=== PATIENT | female | born 1975 | race Caucasian/White ===

== ENCOUNTER 2024-08-07 11:59 | Emergency (ER) | payer MEDICAID, SELFPAY ==
[2024-08-07 12:15] VITALS: BP 149/87; PULSE 64; RESP 16; TEMP 36.4; O2SAT 98
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
--- NOTE | 2024-08-07 13:24 | PC.NURSE ---
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 Patient using her walker to leave ED
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
--- OUTSIDE RECORDS SUMMARY | 2024-08-07 13:40 | XMS_ITS | Clinical Summary ---
Author Organization [facility] Address [address] [place] [address] Phone Care Team Providers Care Bulbs Farmworker Name Role Phone Yifan Zamora MD Unavailable [phone] Jean Grewal MD Unavailable [phone] Jena Grewal MD Primary Care Provider Allergies Active Allergy Reactions Criticality Noted Date Comments Gabapentin Vomiting 08/27/2022 Gabapentin Other (see Comments) Medium 11/02/2023 Medications naproxen (NAPROSYN) 500 MG Tablet Take 1 Tablet by mouth 2 times daily (with meals). 60 Tablet 02/16/20 22 Active hydroCHLOROthiazid e 12.5 MG TabletIndications: Hypertension Take 12.5 mg by mouth daily. Indications: High Blood Pressure Disorder Active aspirin 81 MG Chewable Tablet Take 1 Tablet by mouth daily. 11/04/19 24 Active atorvastatin (LIPITOR) 40 MG Tablet Take 1 Tablet by mouth nightly. 90 Tablet 1 11/03/19 24 Active Additional Information Patient not taking.Reported on 11/14/2023 nicotine (NICODERM CQ) 21 MG/24HR PATCH 24 HR 1 Patch by Transdermal route daily as needed for Other (Nicotine dependency). 30 Patch 11/03/19 24 Active polyethylene glycol (GLYCOLAX, MIRALAX) 17 g PackIndications:Co nstipation Take 1 Packet by mouth 2 times daily as needed for Constipation - 1st line. Dissolve in 4-8 oz of liquid. Indications: Constipation 90 Packet 11/03/19 Active senna (SENOKOT) 8.6 MG Tablet Take 1 Tablet by mouth 2 times daily as needed for Constipation - 2nd line. 30 Tablet 11/03/19 24 Active Additional Information Patient not taking.Reported on 11/14/2023 methylPREDNISolone (MEDROL DOSPACK) 4 MG Tablet Therapy PackIndications:Ac wales nonintractable headache, unspecified headache type Use as per instructions on package. 1 Tablet 11/05/19 Active Additional Information Patient not taking.Reported on 11/14/2023 meclizine (ANTIVERT) 25 MG Tablet Take 1 Tablet by mouth 3 times daily as needed for Dizziness. 30 Tablet 11/09/19 24 Active esomeprazole (NexIUM) 20 MG CAPSULE DELAYED RELEASE Take 20 mg by mouth daily. Active amitriptyline (ELAVIL) 25 MG Tablet Take 1 Tablet by mouth nightly. 90 Tablet 11/14/19 24 Active ondansetron (ZOFRAN-ODT) 4 MG TABLET DISPERSIBLE Take 1 Tablet by mouth every 6 hours as needed for Nausea - 1st line. 10 Tablet 11/26/19 24 Active ALPRAZolam (XANAX) 0.5 MG TabletIndications: Anxiety Take 1 tablet an hour before MRI. May repeat 2 times if needed 3 Tablet 12/12/19 24 Active Active Problems Problem Noted Date Diagnosed Date Meningioma 11/03/2023 Nicotine use disorder 11/03/2023 Numbness and tingling in right hand 11/02/2023 PTSD (post-traumatic stress disorder) 04/06/2023 Depression PTSD (post-traumatic stress disorder) Tobacco abuse Overview (11/02/2023): vapes Encounters Date Type Department Care Team Description 08/06/2024 Telephone [facility] [address] [place] [address] Leann Rhodes LCSW 07/29/2024 Telephone [facility] [address] [place] [address] Sparkle Helton LCSW 07/15/2024 8:40 PM CDT - 07/16/2024 12:19 AM CDT Emergency [facility] [address] [place] [address] Walter Cazares MD Left lower quadrant abdominal pain Discharge Disposition: Discharged to home or Selfcare 07/15/2024 Travel 05/14/2024 10:45 AM EXPERT MEDICAL WRITER Outpatient Clinic Visit [facility] [address] [place] [address] Leann Rhodes LCSW PTSD (post-traumatic stress disorder) (Primary Dx) Discharge Disposition: Discharged to home or Selfcare 05/14/2024 Travel from Last 3 Months Family History Medical History Relation Name Comments Chronic Obstructive Pulmonary Disease Father Diabetes Mother Relation Name Status Comments Father Mother Social History Tobacco Use Types Packs/Day Years Used Date Smoking Tobacco: Former Cigarettes Smokeless Tobacco: Never Tobacco Cessation:Counseling Given: No Alcohol Use Standard Drinks/Week Comments Yes 0 (1 standard drink = 0.6 oz pure alcohol) Occasional drink, maybe 2x/month [employer] Answer Date Recorded In the past 12 months has th [employer] gas, oil, or water [employer] threatened to shut off services in your [...] often do you attend chur ch or spiritism services? Never 11/02/2023 Do you belong to any clubs o r organizations such as jain groups, unions, fraternal or athletic groups, or [...] Total Score - Questions 1-9 2 04/20 [facility] - Occupational [...] any time in the past 12 m [facility], were you homeless or living in a [place] health care facility (including now)? No 11/02/2023 Sexually Active Control Partners Comments Yes Male Comments No Sex and Gender Information Value Date Recorded Sex Assigned at Not on file Legal Sex Female 8:11 PM CDT Gender Identity Not on file Sexual Orientation Not on file Last Filed Vital Signs Vital Sign Reading Time Taken Comments Blood Pressure 112/89 07/16/2024 12:00 AM CDT Pulse 83 07/16/2024 12:00 AM CDT Temperature 36.1 C (97 F) 07/15/2024 8:47 PM CDT Respiratory Rate 16 07/15/2024 8:47 PM CDT Oxygen Saturation 100% 07/16/2024 12:00 AM CDT Inhaled Oxygen Concentration - - Weight 68 kg (150 lb) 07/15/2024 8:47 PM CDT Height 160 cm (5' 3 ) 07/15/2024 8:47 PM CDT Body Mass Index 26.57 07/15/2024 8:47 PM CDT Plan of Treatment Upcoming Encounters Date Type Department Care Team (Late st Contact Info) Description 09/12/2024 10:45 AM CDT Office Visit [facility] - Internal Medicine - [place] [address] [place] [address] Sandee Petersen, [facility] [address] [place] [address] Health Maintenance Due Date Last Done Comments Hepatitis C Virus (HCV) Screening 1973 Mammogram 1973 Hepatitis B Immunization (1 of 3 - 19+ 3-dose series) 1992 Pap Smear 1994 Cervical Cancer Screening (CCS) 10/12/2003 HPV/Cotest 10/12/2003 Colonoscopy 2018 Colorectal Cancer Screening 2018 Cologuard 10/12/2023 Immunochemical Fecal Occult Blood 10/12/2023 Pneumococcal Immunization (5 0+ years) (1 of 1 - PCV) 10/12/2023 Zoster Immunization (1 of 2) 10/12/2023 SARS-COV-2 Immunization (1 - season) 2023 Influenza Immunization (Seas on Ended) 2024 Respiratory Syncytial Virus (RSV) Immunization (Adult) (1 - 1-dose 75+ series) 2048 DTaP/Tdap/Td Immunization Discontinued 12/05/2017 TdaP Immunization Completed 12/05/2017 Human Papillomavirus (HPV) Immunization Aged Out No longer eligible b ased on patient's age to complete this topic Meningococcal Immunization (ACWY) Aged Out No longer eligible based on patient's age to complete this topic Rotavirus Immunization Aged Out No lo nger eligible based on patient's age to complete this topic Goals Goal Patient Goal Type Associated Problems Recent Progress Patient-Stated? Author I don't know what I need to be able to handle all of this. Behavioral Health No change(2024 11:56 AM EXPERT MEDICAL WRITER) Yes Leann Rhodes LCSW Note: Goal/Objective: Improve coping with trauma responses and triggers. Anticipated Time Frame for Goal Completion: 6 months Goal Reviewed with: patient Readiness to change: Ready to change Department associated with goal: [facility] Steps to achieve goal: [...] respinses. Behavioral Health No change(2024 12:02 PM EXPERT MEDICAL WRITER) Yes Leann Rhodes LCSW Note: Goal/Objective: Decrease trauma responses and learn how to manage them.. Anticipated Time Frame for Goal Completion: 6 months Goal Reviewed with: patient Readiness to change: Ready to change Department associated with goal: [facility] Steps to achieve goal: will share personal trauma story in counseling/psychotherapy sessions. will learn/identify how trauma has impacted personal life, physical health and behavioral health. will identify and practice, at least two, skills/activities/routines, to gain relief from the impact of trauma. Will attend individual and/or group therapy at least 1x/month at least 6 sessions Procedures Procedure Name Priority Date/Time Associated Diagnosis Comments CT ABDOMEN PELVIS W/O CONTRAST Stat with Interpretation 07/15/2024 10:30 PM CDT GOLD TOP TUBE STAT 07/15/2024 10:05 PM CDT BLUE TOP TUBE STAT 07/15/2024 10:05 PM CDT CBC WITH AUTO DIFFERENTIAL STAT 07/15/2024 10:05 PM CDT EXTRA TUBES STAT 07/15/2024 10:05 PM CDT CMP (COMPREHENSIVE METABOLIC PANEL) STAT 07/15/2024 10:05 PM CDT COMPLETE BLOOD COUNT (CBC) WITH DIFF STAT 07/15/2024 10:05 PM CDT URINALYSIS REFLEX IF INDICATED BY ABNORMAL RESULTS STAT 07/15/2024 10:00 PM CDT POCT URINE HCG () STAT 07/15/2024 8:49 PM CDT from Last 3 Months Results * CT ABDOMEN PELVIS W/O CONTRAST (07/15/2024 10:30 PM CDT) Anatomical Region Laterality Modality Abdomen N/A Computed Tomogra phy 07/15/2024 11:0 9 PM CDT Impressions 07/15/2024 11:11 PM CDT IMPRESSION: No acute intra-abdominal or pelvic abnormality seen. Mildly enlarged uterus with a slightly lobulated margin, suggestive of fibroids. Consider nonemergent follow-up pelvic ultrasound for further evaluation. Multilevel degenerative changes in the spine. Narrative 07/15/2024 11:11 PM CDT EXAM DESCRIPTION: CT ABDOMEN PELVIS W/O CONTRAST REASON FOR STUDY: c/p LLQ abdominal pain today. States it has been about 2 months since she had a menstrual period but did have bleeding 7 days ago that she did not think was a cycle. HX: Ectopic preganancy, Right tubal ligation TECHNIQUE: CT scan of the abdomen and pelvis performed without intravenous and without oral contrast using helical scanning technique. Reconstructed coronal and sagittal MPR images reviewed. All images stored on PACS. Automated exposure control was used as a dose optimization technique for this examination. COMPARISON: None. FINDINGS: The sensitivity for detection of visceral lesions is diminished without the use of intravenous contrast. LOWER CHEST: The lung bases are clear. LIVER: The liver is normal in attenuation without focal lesion. GALLBLADDER: No stones identified. Normal wall. No evidence of pericholecystic fluid. BILE DUCTS: No intrahepatic or extrahepatic ductal dilatation. PANCREAS: Normal. SPLEEN: Normal size. No focal lesions. ADRENALS: Normal. KIDNEYS/URINARY TRACT: No identified significant cystic or solid masses. No visualized stones. No hydronephrosis or hydroureter. Urinary bladder is unremarkable. VASCULATURE: No acute abnormality seen. No abdominal aortic aneurysm. GI: The stomach appears normal. There is no significant small bowel dilation or visible thickening. No gross colonic abnormalities identified. The appendix is normal. PERITONEUM/MESENTERY: No ascites or free air. LYMPH NODES: There are no enlarged lymph nodes seen by CT size criteria. REPRODUCTIVE: The uterus is mildly enlarged with a slightly lobulated margin, suggestive of fibroids. No adnexal pathology is seen. MUSCULOSKELETAL: Multilevel degenerative changes are present in the spine. No acute abnormality is seen. OTHER: No other abnormality. THIS IS AN ELECTRONICALLY VERIFIED FINAL REPORT 07/15/2024 11:09 PM - Electronically signed by Silva Barone M.D. SN: Report ID: [id number] Reading Location: [id number] Procedure Note Silva Barone MD - 07/15/2024 EXAM DESCRIPTION: CT ABDOMEN PELVIS W/O CONTRAST REASON FOR STUDY: c/p LLQ abdominal pain today. States it has been about 2 months since she had a menstrual period but did have bleeding 7 days ago that she did not think was a cycle. HX: Ectopic preganancy, Right tubal ligation TECHNIQUE: CT scan of the abdomen and pelvis performed without intravenous and without oral contrast using helical scanning technique. Reconstructed coronal and sagittal MPR images reviewed. All images stored on PACS. Automated exposure control was used as a dose optimization technique for this examination. COMPARISON: None. FINDINGS: The sensitivity for detection of visceral lesions is diminished without the use of intravenous contrast. LOWER CHEST: The lung bases are clear. LIVER: The liver is normal in attenuation without focal lesion. GALLBLADDER: No stones identified. Normal wall. No evidence of pericholecystic fluid. BILE DUCTS: No intrahepatic or extrahepatic ductal dilatation. PANCREAS: Normal. SPLEEN: Normal size. No focal lesions. ADRENALS: Normal. KIDNEYS/URINARY TRACT: No identified significant cystic or solid masses. No visualized stones. No hydronephrosis or hydroureter. Urinary bladder is unremarkable. VASCULATURE: No acute abnormality seen. No abdominal aortic aneurysm. GI: The stomach appears normal. There is no significant small bowel dilation or visible thickening. No gross colonic abnormalities identified. The appendix is normal. PERITONEUM/MESENTERY: No ascites or free air. LYMPH NODES: There are no enlarged lymph nodes seen by CT size criteria. REPRODUCTIVE: The uterus is mildly enlarged with a slightly lobulated margin, suggestive of fibroids. No adnexal pathology is seen. MUSCULOSKELETAL: Multilevel degenerative changes are present in the spine. No acute abnormality is seen. OTHER: No other abnormality. THIS IS AN ELECTRONICALLY VERIFIED FINAL REPORT 07/15/2024 11:09 PM - Electronically signed by Silva Barone M.D. SN: Report ID: [id number] Reading Location: [place] [address] IMPRESSION: No acute intra-abdominal or pelvic abnormality seen. Mildly enlarged uterus with a slightly lobulated margin, suggestive of fibroids. Consider nonemergent follow-up pelvic ultrasound for further evaluation. Multilevel degenerative changes in the spine. Walter Cazares MD IMG CT ORDERABLES Final Re sult * Gold Top Tube (07/15/2024 10:05 PM CDT) Blood No Phlebotomy Charged / Unknown 07/15/2024 10:05 PM CDT 07/15/2024 10:29 PM CDT Walter Cazares MD CHEMISTRY ORDERABLES Final Result [facility] [place] [address] * Blue Top Tube (07/15/2024 10:05 PM CDT) Blood No Phlebotomy Charged / Unknown 07/15/2024 10:05 PM CDT 07/15/2024 10:29 PM CDT us Walter Cazares MD HEMATOLOGY ORDERABLES Krsitie l Result [facility] [place] [address] * (ABNORMAL) CBC with Auto Differential (07/15/2024 10:05 PM CDT) WBC 8.19 4.00 - 12.00 10(3)/mcL 07/15/2024 10:32 PM CDT [facility] RBC 4.00 3.80 - 5.30 10(6)/mcL 07/15/2024 10:32 PM CDT [facility] HEMOGLOBIN (HGB) 12.2 12.0 - 15.8 g/dL 07/15/2024 10:32 PM CDT [facility] HEMATOCRIT (HCT) 35.4(L) 36.0 - 47.0 % 07/15/2024 10:32 PM CDT [facility] MCV 88.5 82.0 - 96.0 fL 07/15/2024 10:32 PM CDT [facility] MCH 30.5 26.0 - 34.0 pg 07/15/2024 10:32 PM CDT [facility] MCHC 34.5 31.0 - 36.0 g/dL 07/15/2024 10:32 PM CDT [facility] PLATELET COUNT 308 140 - 440 10(3)/mcL 07/15/2024 10:32 PM CDT [facility] RDW 12.1 11.8 - 15.5 % 07/15/2024 10:32 PM CDT [facility] MPV 10.4 9.7 - 12.4 fL 07/15/2024 10:32 PM CDT [facility] NEUTROPHILS 58.5 47.0 - 73.0 % 07/15/2024 10:32 PM CDT [facility] LYMPHOCYTES 34.7 18.0 - 42.0 % 07/15/2024 10:32 PM CDT [facility] MONOCYTES 4.9 4.0 - 12.0 % 07/15/2024 10:32 PM CDT [facility] EOSINOPHILS 1.7 0.0 - 5.0 % 07/15/2024 10:32 PM CDT [facility] BASOPHILS 0.2 0.0 - 1.0 % 07/15/2024 10:32 PM CDT [facility] ABSOLUTE NEUTROPHILS 4.79 1.60 - 7.70 10(3)/mcL 07/15/2024 10:32 PM CDT [facility] ABSOLUTE LYMPHOCYTES 2.84 1.30 - 3.20 10(3)/mcL 07/15/2024 10:32 PM CDT [facility] ABSOLUTE MONOCYTES 0.40 0.20 - 1.00 10(3)/mcL 07/15/2024 10:32 PM CDT [facility] ABSOLUTE EOSINOPHIL 0.14 0.00 - 0.40 10(3)/[facility] 07/15/2024 10:32 PM CDT [facility] ABSOLUTE BASOPHILS 0.02 0.00 - 0.10 10(3)/[facility] 07/15/2024 10:32 PM CDT [facility] NRBC PER 100 WBC 0 07/16/19 10:32 PM CDT [facility] Blood Venipuncture / Unknown 07/15/2024 10:05 PM CDT 07/15/2024 10:29 PM CDT us Walter Cazares MD HEMATOLOGY ORDERABLES Kristie gramajo Result [facility] [place] [address] * CMP (07/15/2024 10:05 PM CDT) SODIUM 140 136 - 145 mmol/L 07/15/2024 10:55 PM CDT [facility] POTASSIUM 4.0 3.5 - 5.1 mmol/L 07/15/2024 10:55 PM CDT [facility] CHLORIDE 104 98 - 107 mmol/L 07/15/2024 10:55 PM CDT [facility] CO2, VENOUS 27 22 - 30 mmol/L 07/15/2024 10:55 PM CDT [facility] ANION GAP 13.0 <18.0 mmol/L 07/15/2024 10:55 PM CDT [facility] GLUCOSE 98 70 - 99 mg/dL 07/15/2024 10:55 PM CDT [facility] BUN 11 10 - 20 mg/dL 07/15/2024 10:55 PM CDT [facility] CREATININE, BLOOD 0.73 0.60 - 1.00 mg/dL 07/15/2024 10:55 PM CDT [facility] BUN/CREATININE RATIO 15 12 - 20 ratio 07/15/2024 10:55 PM CDT [facility] TOTAL PROTEIN 7.6 6.0 - 8.0 g/dL 07/15/2024 10:55 PM CDT [facility] ALBUMIN 4.2 3.5 - 5.0 g/dL 07/15/2024 10:55 PM CDT [facility] A/G RATIO 1.2 1.0 - 2.2 07/15/2024 10:55 PM CDT [facility] CALCIUM 9.3 8.7 - 10.5 mg/dL 07/15/2024 10:55 PM CDT [facility] T BILI 0.2 0.2 - 1.2 mg/dL 07/15/2024 10:55 PM CDT [facility] SGOT (AST) 18 <43 U/L 07/15/2024 10:55 PM CDT [facility] SGPT (ALT) 15 <56 U/L 07/15/2024 10:55 PM CDT [facility] ALKALINE PHOSPHATASE 41 40 - 150 U/L 07/15/2024 10:55 PM CDT [facility] GFR, ESTIMATED >60 >=60 07/15/2024 10:55 PM CDT [facility] Comment: Creatinine Clearance is the preferred criteria for selecting drug dose adjustments in renally impaired patients. The GFR is provided as additional pertinent clinical information. GFR is reported in mL/min/1.73 sq m. Calculation based on the Chronic Kidney Disease Epidemiology Collaboration (CKD- EPI) equation refit without adjustment for race. GFR, EST. >60 >=60 025 10:55 PM CDT [facility] GFR, EST. NONAFRICAN >60 >=60 07/15/2024 10:55 PM CDT [facility] Blood Venipuncture / Unknown 07/15/2024 10:05 PM CDT 07/15/2024 10:29 PM CDT us Walter Cazares MD CHEMISTRY ORDERABLES Final Result [facility] [place] [address] * (ABNORMAL) Urinalysis w/ Reflex (07/15/2024 10:00 PM CDT) SPECIFIC GRAVITY 1.010 1.003 - 1.030 07/15/2024 10:34 PM CDT [facility] URINE PH 6.0 5.0 - 9.0 07/15/2024 10:34 PM CDT [facility] WBC ESTERASE Negative Negative 07/15/2024 10:34 PM CDT [facility] NITRITE Negative Negative 07/15/2024 10:34 PM CDT [facility] PROTEIN, RANDOM URINE 15 mg/dL(A) Negative 07/15/2024 10:34 PM CDT [facility] URINE GLUCOSE, QUAL Negative Negative 07/15/2024 10:34 PM CDT [facility] URINE KETONES Negative Negative 07/15/2024 10:34 PM CDT [facility] UROBILINOGEN Normal Normal mg/dL 07/15/2024 10:34 PM CDT [facility] URINE BLOOD Negative Negative cristiane/ul 07/15/2024 10:34 PM CDT [facility] URINALYSIS COLOR Pale yellow 025 10:34 PM CDT [facility] URINALYSIS CLARITY Clear 07/15/2024 10:34 PM CDT [facility] Urine URINE SPECIMEN / Unknown Non-Phlebotomy Collection / Unknown 07/15/2024 10:00 PM CDT 07/15/2024 10:29 PM CDT Walter Cazares MD URINE ORDERABLES Final Res ult [facility] [place] [address] * POCT Urine HCG () (07/15/2024 8:49 PM CDT) POC URINE Negative POC URINE CONTROL [employer] Urine 07/15/2024 8:49 PM CDT Walter Cazares MD POINT OF CARE TESTING (MAN UAL) Final Result from Last 3 Months Insurance MEDICAID [place] Advance Directives * Full Code (Latest Code Status on File) Date Activated Date Inactivated Comments 11/02/2023 3:11 PM 11/09/2023 7:40 AM CPR-Full Duane atment: FULL ARREST: Attempt Resuscitation/CPR wit intubation and mechanical ventilation. PRE-ARREST: Use entire range of life support measures to stabilize the patient. Care Teams Bulbs Farmworker Relationship Specialty Start Date End Date Jean Grewal MD [address] [place] [address] PCP - General Neurology 12/21/23 [place] [address] [place], [place] [id number] Family Medicine 02/07/23 Jean Grewal MD [address] [place] [address] Consulting Physician Neurology 11/14/23
== END 2024-08-07 14:36 | disposition left against medical advice (07) ==
LOC: ANHED 13:38
PROVIDERS: Emergency Provider Physician Assistant
DX: S39.012A Strain of muscle, fascia and tendon of lower back, initial encounter (principal); X58.XXXA Exposure to other specified factors, initial encounter
CPT/HCPCS: 99281

== ENCOUNTER 2024-08-11 12:53 | Emergency (ER) | payer OTHER, MEDICAID, SELFPAY ==
--- NOTE | ~2024-08-11 | XR_ITS ---
HISTORY: GEN PAIN COMPARISON: None TECHNIQUE: 3 views of the cervical spine were performed FINDINGS: Visualization of the cervical spine to the superior endplate of T1. Straightening of the normal curvature of the cervical spine is identified. No prevertebral soft tissue swelling is appreciated. No acute compression fracture is noted. The dens is equidistant between the pillars, without asymmetry. Air column within the trachea is midline. The visualized portions of the bilateral upper lung issa are unremarkable. IMPRESSION: Straightening of the normal curvature of the cervical spine, likely muscular in origin. Reviewed, dictated and finalized at location A.
--- OUTSIDE RECORDS SUMMARY | 2024-08-11 12:56 | XMS_ITS | Clinical Summary ---
Author Organization [facility] Address [address] [place] [address] Phone Care Team Providers Care Coremaker Experimental Name Role Phone Yifan Zamora MD Unavailable [phone] Jean Grewal MD Unavailable [phone] Jean Grewal MD Primary Care Provider Allergies Active [...] (MEDROL DOSPACK) 4 MG Tablet Therapy PackIndications:Ac [place] nonintractable headache, unspecified headache type Use as [...] Care Team Description 08/06/[address] [facility] [address] [place] [address] Leann Rhodes LCSW 07/29/[address] [facility] [address] [place] [address] Sparkle Helton LCSW 07/15/2024 8:40 PM CDT - 07/16/2024 12:19 AM CDT Emergency [facility] [address] [place] [address] Walter Cazares MD Left lower quadrant abdominal pain Discharge Disposition: Discharged to home or Selfcare 07/15/2024 Travel 05/14/2024 10:45 AM QUALITY ASSURANCE CALIBRATOR Outpatient Clinic [facility] [address] [place] [address] Leann Rhodes LCSW PTSD (post-traumatic stress disorder) [...] oz pure alcohol) Occasional drink, maybe 2x/month [employer] Answer Date Recorded In the past 12 months has th [employer], gas, oil, or water [employer] threatened to shut off services in your [...] often do you attend chur ch or jew services? Never 11/02/2023 Do you belong to [...] Total Score - Questions 1-9 2 04/20 [facility] - Occupational Stress [...] any time in the past 12 m [facility], were you homeless or living in a care home (including now)? No 11/02/2023 Sexually Active Control [...] 8:47 PM CDT Height 160 cm (5' 3) 07/15/2024 8:47 PM CDT Body Mass Index 26.57 07/15/2024 8:47 PM CDT Plan of Treatment Upcoming Encounters Date Type Department Care Team (Late st Contact Info) Description 09/12/2024 10:45 AM CDT Office Visit [facility] - [place] [address] [place] [address] Sandee Petersen, [facility] [address] [place] [address] Health Maintenance Due Date Last Done Comments [...] this. Behavioral Health No change(2024 11:56 AM QUALITY ASSURANCE CALIBRATOR) Yes Leann Rhodes LCSW Note: Goal/Objective: Improve coping with trauma responses and triggers. Anticipated Time Frame for Goal Completion: 6 months Goal Reviewed with: patient Readiness to change: Ready to change Department associated with goal: [facility] Steps to achieve goal: [...] respinses. Behavioral Health No change(2024 12:02 PM QUALITY ASSURANCE CALIBRATOR) Yes Leann Rhodes LCSW Note: Goal/Objective: Decrease trauma responses and learn how to manage them.. Anticipated Time Frame for Goal Completion: 6 months Goal Reviewed with: patient Readiness to change: Ready to change Department associated with goal: [facility] Steps to achieve goal: [...] by Silva Barone M.D. SN: Report ID: [id number] Reading Location: [id number] Procedure Note Silva Barone MD - 07/15/2024 [...] by Silva Barone M.D. SN: Report ID: [id number] Reading Location: [place] [address] IMPRESSION: No acute intra-abdominal or pelvic abnormality [...] Cazares MD CHEMISTRY ORDERABLES Final Result [facility] [place] [address] * Blue Top Tube (07/15/2024 10:05 PM CDT) Blood No Phlebotomy Charged / Unknown 07/15/2024 10:05 PM CDT 07/15/2024 10:29 PM CDT us Walter Cazares MD HEMATOLOGY ORDERABLES Kristie l Result [facility] [place] [address] * (ABNORMAL) CBC with Auto Differential (07/15/2024 10:05 PM CDT) WBC 8.19 4.00 - 12.00 10(3)/mcL 07/15/2024 10:32 PM CDT [facility] RBC 4.00 3.80 - 5.30 10(6)/mcL 07/15/2024 10:32 PM CDT [facility] HEMOGLOBIN (HGB) 12.2 12.0 - 15.8 g/dL 07/15/2024 10:32 PM CDT [facility] HEMATOCRIT (HCT) 35.4(L) 36.0 - 47.0 % 07/15/2024 10:32 PM CDT [facility] MCV 88.5 82.0 - 96.0 fL 07/15/2024 10:32 PM CDT [facility] MCH 30.5 26.0 - 34.0 pg 07/15/2024 10:32 PM CDT [facility] MCHC 34.5 31.0 - 36.0 g/dL 07/15/2024 10:32 PM CDT [facility] PLATELET COUNT 308 140 - 440 10(3)/mcL 07/15/2024 10:32 PM CDT [facility] RDW 12.1 11.8 - 15.5 % 07/15/2024 10:32 PM CDT [facility] MPV 10.4 9.7 - 12.4 fL 07/15/2024 10:32 PM CDT [facility] NEUTROPHILS 58.5 47.0 - 73.0 % 07/15/2024 10:32 PM CDT [facility] LYMPHOCYTES 34.7 18.0 - 42.0 % 07/15/2024 10:32 PM CDT [facility] MONOCYTES 4.9 4.0 - 12.0 % 07/15/2024 10:32 PM CDT [facility] EOSINOPHILS 1.7 0.0 - 5.0 % 07/15/2024 10:32 PM CDT [facility] BASOPHILS 0.2 0.0 - 1.0 % 07/15/2024 10:32 PM CDT [facility] ABSOLUTE NEUTROPHILS 4.79 1.60 - 7.70 10(3)/mcL 07/15/2024 10:32 PM CDT [facility] ABSOLUTE LYMPHOCYTES 2.84 1.30 - 3.20 10(3)/mcL 07/15/2024 10:32 PM CDT [facility] ABSOLUTE MONOCYTES 0.40 0.20 - 1.00 10(3)/mcL 07/15/2024 10:32 PM CDT [facility] ABSOLUTE EOSINOPHIL 0.14 0.00 - 0.40 10(3)/[facility] 07/15/2024 10:32 PM CDT [facility] ABSOLUTE BASOPHILS 0.02 0.00 - 0.10 10(3)/[facility] 07/15/2024 10:32 PM CDT [facility] NRBC PER 100 WBC 0 07/16/19 10:32 PM CDT [facility] Blood Venipuncture / Unknown 07/15/2024 10:05 PM CDT 07/15/2024 10:29 PM CDT us Walter Cazares MD HEMATOLOGY ORDERABLES Kristie gramajo Result [facility] [place] [address] * CMP (07/15/2024 10:05 PM CDT) SODIUM 140 136 - 145 mmol/L 07/15/2024 10:55 PM CDT [facility] POTASSIUM 4.0 3.5 - 5.1 mmol/L 07/15/2024 10:55 PM CDT [facility] CHLORIDE 104 98 - 107 mmol/L 07/15/2024 10:55 PM CDT [facility] CO2, VENOUS 27 22 - 30 mmol/L 07/15/2024 10:55 PM CDT [facility] ANION GAP 13.0 <18.0 mmol/L 07/15/2024 10:55 PM CDT [facility] GLUCOSE 98 70 - 99 mg/dL 07/15/2024 10:55 PM CDT [facility] BUN 11 10 - 20 mg/dL 07/15/2024 10:55 PM CDT [facility] CREATININE, BLOOD 0.73 0.60 - 1.00 mg/dL 07/15/2024 10:55 PM CDT [facility] BUN/CREATININE RATIO 15 12 - 20 ratio 07/15/2024 10:55 PM CDT [facility] TOTAL PROTEIN 7.6 6.0 - 8.0 g/dL 07/15/2024 10:55 PM CDT [facility] ALBUMIN 4.2 3.5 - 5.0 g/dL 07/15/2024 10:55 PM CDT [facility] A/G RATIO 1.2 1.0 - 2.2 07/15/2024 10:55 PM CDT [facility] CALCIUM 9.3 8.7 - 10.5 mg/dL 07/15/2024 10:55 PM CDT [facility] T BILI 0.2 0.2 - 1.2 mg/dL 07/15/2024 10:55 PM CDT [facility] SGOT (AST) 18 <43 U/L 07/15/2024 10:55 PM CDT [facility] SGPT (ALT) 15 <56 U/L 07/15/2024 10:55 PM CDT [facility] ALKALINE PHOSPHATASE 41 40 - 150 U/L 07/15/2024 10:55 PM CDT [facility] GFR, ESTIMATED >60 >=60 07/15/2024 10:55 PM CDT [facility] Comment: Creatinine Clearance is the preferred criteria for selecting drug dose adjustments in renally impaired patients. The GFR is provided as additional pertinent clinical information. GFR is reported in mL/min/1.73 sq m. Calculation based on the Chronic Kidney Disease Epidemiology Collaboration (CKD- EPI) equation refit without adjustment for race. GFR, EST. >60 >=60 025 10:55 PM CDT [facility] GFR, EST. NONAFRICAN >60 >=60 07/15/2024 10:55 PM CDT [facility] Blood Venipuncture / Unknown 07/15/2024 10:05 PM CDT 07/15/2024 10:29 PM CDT us Walter Cazares MD CHEMISTRY ORDERABLES Final Result [facility] [place] [address] * (ABNORMAL) Urinalysis w/ Reflex (07/15/2024 10:00 PM CDT) SPECIFIC GRAVITY 1.010 1.003 - 1.030 07/15/2024 10:34 PM CDT [facility] URINE PH 6.0 5.0 - 9.0 07/15/2024 10:34 PM CDT [facility] WBC ESTERASE Negative Negative 07/15/2024 10:34 PM CDT [facility] NITRITE Negative Negative 07/15/2024 10:34 PM CDT [facility] PROTEIN, RANDOM URINE 15 mg/dL(A) Negative 07/15/2024 10:34 PM CDT [facility] URINE GLUCOSE, QUAL Negative Negative 07/15/2024 10:34 PM CDT [facility] URINE KETONES Negative Negative 07/15/2024 10:34 PM [address] [facility] UROBILINOGEN Normal Normal mg/dL 07/15/2024 10:34 PM [address] [facility] URINE BLOOD Negative Negative cristiane/ul 07/15/2024 10:34 PM CDT [facility] URINALYSIS COLOR Pale yellow 025 10:[address] [facility] URINALYSIS CLARITY Clear 07/15/2024 10:34 PM CDT [facility] Urine URINE SPECIMEN / Unknown Non-Phlebotomy Collection / Unknown 07/15/2024 10:00 PM CDT 07/15/2024 10:29 PM CDT Walter Cazares MD URINE ORDERABLES Final Res ult [facility] [place] [address] * POCT Urine HCG () (07/15/2024 8:49 PM CDT) POC URINE Negative POC URINE CONTROL Oral Pathologist Pass Urine 07/15/2024 8:49 PM CDT Walter [...] measures to stabilize the patient. Care Teams Coremaker Experimental Relationship Specialty Start Date End Date Jean Grewal MD [address] [place] [address] PCP - General Neurology 12/21/23 [place] [address] [place], [place] [address] Family Medicine 02/07/23 Jean Grewal MD [address] [place] [address] Consulting Physician Neurology 11/14/23
--- OUTSIDE RECORDS SUMMARY | 2024-08-11 13:02 | XMS_ITS | Clinical Summary ---
Author Organization [facility] Address [address] [place] [address] Care Team Providers Care Health Informatics Advisor Name Role Phone Unavailable Primary Care Provider Unavailabl e Source Comments [facility],non-owned Affiliates and Associated Physician Practices is amultiple site organization consisting of ambulatory clinics and hospital sitesin [place], [place] and [place]. This disclosure is being madepursuant to the Care Everywhere program and may not contain all information available regarding this patient. 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 Gender Identity Not on file Sexual Orientation Not on file Last Filed Vital Signs Vital Sign Reading Time Taken Comments Blood Pressure 114/74 10/12/2018 12:57 PM CDT Pulse 60 10/12/2018 12:57 PM CDT Temperature 36.7 C (98 F) 10/12/2018 12:57 PM CDT Respiratory Rate 16 10/12/2018 12:57 PM CDT Oxygen Saturation 99% 10/12/2018 12:57 PM CDT Inhaled Oxygen Concentration - - Weight 68 kg (150 lb) 10/12/2018 12:57 PM CDT Height 158.8 cm (5' 2.5) 10/12/2018 12:57 PM CD T Body Mass Index 27 10/12/2018 12:57 PM CDT Plan of Treatment Health Maintenance Due Date Last Done Comments COLOGUARD (AGES 45-75) - COL ON CA SCREENING 1973 COLON MONITORING 1973 COLONOSCOPY - COLON CA SCREENING 1973 CT COLONOGRAPHY - COLON CA SCREENING 1973 Colorectal Cancer Screening 1973 FIT - COLON CA SCREENING 1973 FLEX SIG - COLON CA SCREENING 1973 LIPID TESTING 1973 MAMMOGRAM 1973 HIV SCREENING 1988 HEPATITIS C SCREENING 10/07/1991 DTAP/TDAP/TD VACCINES (1 - Tdap) 1992 HEPATITIS B VACCINE (1 of 3 - 19+ 3-dose series) 1992 SCREENING FOR DIABETES 10/12/2018 PNEUMOCOCCAL VACCINE 50+ (1 of 1 - PCV) 10/12/2023 ZOSTER VACCINE (1 of 2) 10/12/2023 COVID-19 VACCINE (1 - 2023-2 5 season) 2023 DEPRESSION SCREENING 03/19/2024 INFLUENZA VACCINE (Season Ended) 2024 HIB VACCINE Aged Out No longer eligi ble based on patient's age to complete this topic HPV VACCINE Aged Out No longer eligi ble based on patient's age to complete this topic MENINGOCOCCAL (Group B) VACC INE SHARED DECISION-MAKING Aged Out No longer eligibl e based on patient's age to complete this topic MENINGOCOCCAL GROUPS A/C/Y/W VACCINE Aged Out No longer eligible b ased on patient's age to complete this topic Insurance MEDICAID [employer] [place] [address] [place] [id number]
[2024-08-11 13:03] VITALS: BP 116/73; PULSE 61; RESP 20; TEMP 36.6; O2SAT 99
--- NOTE | 2024-08-11 13:22 | ED.NECK ---
HPI - Neck Pain/Injury General Chief Complaint: Neck Pain/Injury Stated Complaint: Neck Pain Source: patient Mode of arrival: ambulatory Limitations: no limitations History of Present Illness HPI Narrative: 48 y/o female with PMH of spinal stenosis/DDD, who presents today with c/o neck pain. Says the pain has been consistent for 4 days. Denies recent injury. Endorses severe back pain for many years, and follows with neurology. States she has an appointment sometime in August. She cannot tolerate lyrica or gabapentin; has done PT and water therapy in addition to injections and has had many MRIs. States she wants to know what is wrong, she does not want medication. Says she has taken Tylenol PM last night stating it does not allow her to sleep. Denies numbness, tingling, weakness, vision changes, headache, vomiting. Endorses the chronic low back pain feels like a shock, and will 'go off' causing her to feel paralyzed. Pt was seen in the ER 4 days ago, for low back pain, but states she did not stay for treatment because they were not listening. States she is not here for that today. 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 Related Data Allergies Allergy/AdvReac Type Severity Reaction Status Date / Time gabapentin Allergy Severe Vomiting Verified 08/11/24 13:14 Review of Systems Review of Systems: CONSTITUTIONAL: Denies body aches, fever, chills EYES: Denies visual changes CARDIOVASCULAR: Denies chest pain, palpitations, or edema. RESPIRATORY: Denies cough or dyspnea. GASTROINTESTINAL: Denies abdominal pain, nausea, vomiting, or diarrhea. SKIN: Denies rash, itching, or wounds. MUSCULOSKELETAL: reports neck, back pain NEUROLOGIC: Denies headache, numbness, tingling, or weakness. All systems reviewed & are unremarkable except as noted in HPI and below [facility] Past Medical History Medical History (Updated 08/11/24 @ 13:50 by Farnaz Winters, ANIRUDH) CVA (cerebral vascular accident) Carotid artery dissection Spondylosis DDD (degenerative disc disease) Comments At time of signature, I have reviewed and agree with nursing past medical, surgical, social and family history unless otherwise noted. Please see nursing chart for further information. There is no relevant family history pertinent to the presenting complaint Exam Narrative: GENERAL: Tearful, anxious, talkative. in no acute distress. HEAD: Normocephalic, atraumatic. EYES: conjunctivae clear NECK: Supple. full ROM; reports pain with movement and light palpation over C6-7 area. CHEST: Speaks in full sentences. No respiratory distress. HEART: Regular rate and rhythm. Normal and equal peripheral pulses. MUSC: Vertebral tenderness with light palpation throughout spine. BLEs with normal strength and sensation, endorses pain with movement. No open wounds, or obvious deformity; alignment normal, pulse palpable and equal bilaterally, skin warm, dry, pink. Capillary refill less than 3 seconds. Gait steady; using cane. SKIN: Warm, dry, no rash. NEURO: Alert and oriented x3. Course Course Emergency Course: Patient is aware of diagnosis, understands and agrees to treatment plan. Anticipatory guidance given. Patient agrees to follow-up as directed and is aware of reasons to seek care at the emergency department. Portions of this record may have been created with voice recognition software Level of Care: Express Care Visit Vital Signs Vital signs: Vital Signs Temperature 98 F 08/11/24 13:03 Pulse Rate 61 08/11/24 13:03 Respiratory Rate 20 08/11/24 13:03 Blood Pressure 116/73 08/11/24 13:03 Pulse Oximetry 99 08/11/24 13:03 Oxygen Delivery Room Air 08/11/24 13:03 Temperature 98 F 08/11/24 13:03 Pulse Rate 61 08/11/24 13:03 Respiratory Rate 20 08/11/24 13:03 Blood Pressure 116/73 08/11/24 13:03 Pulse Oximetry 99 08/11/24 13:03 Oxygen Delivery Room Air 08/11/24 13:03 Reviewed MDM - Neck Pain/Injury MDM Narrative Medical decision making narrative: Discussed physical exam findings and xray. Pt reports multiple areas of chronic spinal pain, tearful at times. Says muscle relaxers make pain worse and steroids make her 'heart feel funny.' Requested Tramadol. She is agreeable to prednisone at this time; no indication for other medication per imaging. Pt says she is established with a neurologist. Advised close f/u. Advised supportive measures and signs/symptoms to go to the ER. Pt is appropriate for outpt treatment and f/u. Differential Diagnosis Differential diagnosis: Likely disc disorder of cervical region, whiplash injury to neck, closed subluxation of cervical spine, fracture of cervical spine without lesion of spinal cord, cervical radiculopathy, vertebral artery dissection, torticollis, cervical spondylosis and strain of neck muscle Imaging Data Radiologist's impression: Patient: Ana Correa : 1975 MR#: [id number] Age: 48 Acct:[id number] Loc: [facility] ADM Date: 08/11/24Attending Dr: Ordering Physician: Farnaz Winters APRN Date of Service: 08/11/24 Procedure(s): XR cervical spine 2-3V Accession Number(s): [id number] cc: Farnaz Winters APRN; MATERNITY FLOOR SUPERVISOR PHYSICIAN~ HISTORY: GEN PAIN COMPARISON: None TECHNIQUE: 3 views of the cervical spine were performed FINDINGS: Visualization of the cervical spine to the superior endplate of T1. Straightening of the normal curvature of the cervical spine is identified. No prevertebral soft tissue swelling is appreciated. No acute compression fracture is noted. The dens is equidistant between the pillars, without asymmetry. Air column within the trachea is midline. The visualized portions of the bilateral upper lung issa are unremarkable. IMPRESSION: Straightening of the normal curvature of the cervical spine, likely muscular in origin. Discharge Plan Discharge Clinical Impression: Acute neck pain Patient Disposition: Home Condition: Stable Instructions: Acute Neck Pain (ED) Additional Instructions: Rest. Avoid pushing, pulling, lifting or anything that worsens the symptoms Tylenol 1000mg every 8 hours as needed Take the steroid as directed Alternate ice/heat to the site. Lidocaine or salon pas pain patch or use pain cream like icy/hot or biofreeze. Follow up with your primary care provider and neurologist this week. Go to the ER for worsening symptoms or concerns Patient Language: Paraguayan Prescriptions: New prednisone 20 mg tablet 40 mg PO DAILY 5 Days Qty: 10 0RF Follow-up/Referrals: PHYSICIAN,MATERNITY FLOOR SUPERVISOR [Primary Care Provider] - Time of Disposition: 13:49
== END 2024-08-11 13:53 | disposition home or self-care (01) ==
PROVIDERS: Emergency Provider Nurse Practitioner Family
DX: M54.2 Cervicalgia (principal); Z86.73 Personal history of transient ischemic attack (TIA), and cerebral infarction without residual deficits
CPT/HCPCS: 72040; 99213; G0463